=== PATIENT | male | born 1965 | race Caucasian/White ===

== ENCOUNTER 2017-11-16 16:45 | Emergency (ER) | payer MEDICAID, OTHER ==
[2017-11-16] MEDS: IBUPROFEN 600 MG TAB PO (17:39)
[2017-11-16] MEDS: HYDROCODONE/APAP (5/325) TAB PO (21:42)
== END 2017-11-16 22:03 | disposition home or self-care (01) ==
LOC: FTE 16:45
DX: M25.512 Pain in left shoulder (principal); M54.2 Cervicalgia; M25.522 Pain in left elbow; M54.5 Low back pain; R51 Headache
CPT/HCPCS: 70110; 70450; 70486; 71045; 72100; 72125; 73030; 73080-LT; 93005; 99285-25